=== PATIENT | male | born 1985 | race African-American/Black ===

== ENCOUNTER 2016-07-12 19:16 | Emergency (ER) | payer OTHER ==
[~2016-07-12] VITALS: Ht 188 cm; Wt 163.2 kg
[2016-07-12 19:21] VITALS: TEMP 36.6; Ht 188 cm; Wt 163.2 kg
[2016-07-12] MEDS ORDERED: OXYCODONE HCL IR 5 MG TAB (IMMEDIATE RELEASE) PO STA (19:38)
--- NOTE | 2016-07-12 19:41 | EMERGENCY ROOM VISIT NOTE ---
ED Visit Note First contact with patient: 19:25 CHIEF COMPLAINT: Low back pain HISTORY OF PRESENT ILLNESS: This 31-year-old male patient presents to the emergency department ambulatory complaining of pain in the low back which began today. The patient does report he has had problems with his back on-and-off for the past 9 months. He has been seeing his primary care provider and states that they are going to schedule him for an MRI. He states that today, he bent over while at work and felt a sudden pain in his lower back. He does state this is similar to pain he has had in the past. He rates the discomfort a 5/ 10. He has some radiation of the pain into the left thigh. The pain is worse with movement at this time. He took ibuprofen without relief. The patient denies any loss of control of their bowel or bladder functions. There has been no leg numbness or weakness, and no change in sensation. No nausea or vomiting or abdominal pain. No chest pain or shortness of breath. No dysuria or increased urinary frequency. REVIEW OF SYSTEMS: A review of systems was performed with positives and pertinent negatives listed in the history of present illness. All other systems were reviewed and are negative. ALLERGIES: No known drug allergies MEDICATIONS: No chronic medications PMH: No significant past medical history. SOCIAL HISTORY: The patient lives locally with family. He is a smoker. PHYSICAL EXAM: VITALS: Vitals are noted on the nurse's note and reviewed by myself. Vital signs stable. GENERAL: This is a 31-year-old male, in no acute distress, nondiaphoretic, well- developed well-nourished. SKIN: The skin was without rashes, erythema, edema, or bruising. Capillary refill less than 2 seconds. NECK: Supple without nuchal rigidity. No cervical spine tenderness. No paraspinous muscle tenderness. HEART: Regular rate and rhythm without murmurs gallops or rubs. LUNGS: Clear to auscultation bilaterally without wheezes, rales or rhonchi. ABDOMEN: Positive bowel sounds x 4. Normal tympanic percussion. Soft, nontender, without masses or organomegaly. Bales sign negative. MUSCULOSKELETAL: No muscle atrophy, erythema, or edema noted of the back. There is mild tenderness over the lumbar spinous processes. There is no tenderness over the paraspinous muscles. There is no tenderness over the thoracic spine or paraspinous muscles. There are no muscle spasms present. The patient is slow to move around with maximum tenderness with flexion. Negative straight leg raise test. NEURO: Patient was alert and oriented to person place and time. Normal sensation to light and sharp touch. Deep tendon reflexes 2+ in the lower extremities. Dorsalis pedis pulse 2+ bilaterally. Strength 5/5 and equal in the bilateral lower extremities. EMERGENCY DEPARTMENT COURSE: The patient was evaluated as above. There are no concerning signs of cauda equina syndrome or cord compression. The patient does have a history of chronic low back pain which seems to have worsened after bending over tonight. He was given 1 tablet of OxyIR and will be given a prescription for OxyIR as well as prednisone. The [place] prescription drug monitoring program was queried and no red flags were identified. He was instructed to continue following up with his primary care provider as scheduled. He verbalized understanding of my assessment and treatment plan and was discharged home in good condition. DIAGNOSIS: Lumbar back pain Current/Historical Medications Scheduled Prednisone (Prednisone), 50 MG PO DAILY Scheduled PRN Ibuprofen (Motrin), 800 MG PO Q8H PRN for Pain or Fever Oxycodone Ir (Roxicodone Ir), 1-2 TAB PO Q4H PRN for Pain Allergies Coded Allergies: No Known Allergies (Unverified , 07/12/16) Vital Signs Date Time Temp Pulse Resp B/P Pulse Ox O2 Delivery O2 Flow Rate FiO2 07/12/16 20:12 98 20 156/98 99 07/12/16 19:21 36.6 112 20 102/68 98 Room Air Medications Administered Medications (Trade) Dose Ordered Sig/Herve Route Start Time Stop Time Status Last Admin Dose Admin Oxycodone HCl (Roxicodone Immediate Rel Tab) 5 mg NOW STAT PO 07/12/16 19:38 07/12/16 19:39 DC 07/12/16 20:08 5 MG Departure Information Impression Primary Impression: Acute lumbar back pain Dispostion Home / Self-Care Condition GOOD Prescriptions Prednisone (Prednisone) 50 Mg Tab 50 MG PO DAILY for 5 Days, #5 TAB Prov: Marybel Ortega PA-C 07/12/16 Oxycodone Ir (Roxicodone Ir) 5 Mg Tab 1-2 TAB PO Q4H Y for Pain, #15 TAB For Initial Treatment Prov: Marybel Ortega PA-C 07/12/16 Patient Instructions My [facility] Additional Instructions You have been treated in the Emergency Department for Back Pain. You have received pain medicine in the emergency department which impairs your ability to operate a vehicle. It is illegal for you to drive after receiving these medicines. You have been prescribed OxyIR to be used for pain control. This is a narcotic medication. You cannot drive or consume alcohol while on this medicine. This medicine should only be used for pain that cannot be controlled with over-the- counter pain medicines. Prednisone as prescribed. This is a steroid which will help reduce inflammation in your back. Take this in the morning as it can affect your sleeping patterns. For pain control, you can use the following [id number] medicines (if >12 yo): - Regular strength (325mg/tab) Tylenol (acetaminophen) 2 tabs every 4-6 hours as needed. Do not exceed 12 tablets in a 24 hour period. Avoid taking more than 4 grams (4000 mg) of Tylenol per day. This includes any other sources of acetaminophen you may take on a regular basis. - Regular strength (200 mg/tab) Advil (ibuprofen) 1-2 tabs every 4-6 hours as needed. Do not exceed a dose of 3200 mg per day. If this is an acute injury, ice can be applied to the area of pain for the first 3 days to help decrease pain and inflammation. After the first 3 days, a heating pad can be used over the area for continued soothing relief. You should schedule a follow-up appointment in 2-3 days with your Primary Care Provider for further evaluation and treatment of your back pain. Return to the Emergency Department if your current symptoms worsen despite treatment course outlined above, or if you develop any of the following symptoms : intractable pain despite aforementioned treatment course, loss of control of your bowel or bladder, numbness or tingling in your groin, or development of a fever. Problem Qualifiers Primary Impression: Acute lumbar back pain Back pain laterality: midline Sciatica presence: with sciatica Sciatica laterality: sciatica of left side Qualified Codes: M54.42 - Lumbago with sciatica, left side
[2016-07-12] MEDS ORDERED: IBUP-1428 PO (19:58)
[2016-07-12] MEDS ORDERED: OXYC1TAB3 PO (20:02)
[2016-07-12] MEDS ORDERED: PRED50TA PO (20:02)
[2016-07-12 20:12] VITALS: BP 156/98; PULSE 98; O2SAT 99
== END 2016-07-12 20:12 | disposition home or self-care (01) ==
LOC: C.EDB 19:19 → C.EDD 20:12
DX: M54.42 Lumbago with sciatica, left side (principal); F17.200 Nicotine dependence, unspecified, uncomplicated